=== PATIENT | female | born 1985 | race Two or more races ===

== ENCOUNTER 2019-08-23 09:23 | Emergency (ER) | payer SELFPAY ==
--- NOTE | 2019-08-23 09:51 | ER Document Report ---
ED Medical Screen (RME) - General Chief Complaint: Vaginal Bleeding Stated Complaint: VAGINAL BLEEDING/CRAMPING Time Seen by Provider: 08/23/19 09:47 Primary Care Provider: ESEQUIEL SHER [Primary Care Provider] - Follow up as needed Mode of Arrival: Ambulatory Information source: Patient Notes: Patient is an otherwise healthy 34-year-old female G4, P2 presenting to the emergency department with chief complaint of vaginal bleeding in the setting of early . Patient reports she is approximately 6 weeks , states that she was having some vaginal bleeding yesterday. She states the bleeding has resolved but now she is having a low abdominal cramping. I have greeted and performed a rapid initial assessment of this patient. A comprehensive ED assessment and evaluation of the patient, analysis of test results and completion of the medical decision making process will be conducted by additional ED providers. I have specifically instructed the patient or family members with the patient to immediately return to any nursing staff should anything change in the patient's condition or with their chief complaint. - Related Data Allergies/Adverse Reactions: No Known Drug Allergies Allergy (Verified 08/23/19 09:45) Physical Exam - Vital signs Vitals: Temp Pulse Resp BP Pulse Ox 98.6 F 85 16 114/68 99 08/23/19 09:32 08/23/19 09:32 08/23/19 09:32 08/23/19 09:32 08/23/19 09:32 Course - Vital Signs Vital signs: Temp Pulse Resp BP Pulse Ox 98.6 F 85 16 114/68 99 08/23/19 09:32 08/23/19 09:32 08/23/19 09:32 08/23/19 09:32 08/23/19 09:32 Doctor's Discharge - Discharge Referrals: ESEQUIEL SHER [Primary Care Provider] - Follow up as needed
[2019-08-23 10:38] LABS: ABSOLUTE EOSINOPHILS # (AUTO) 0.1 10^3/uL (0.0-0.6); ABSOLUTE LYMPHOCYTES (AUTO) 1.5 10^3/uL (0.5-4.7); ABSOLUTE MONOCYTES (AUTO) 0.5 10^3/uL (0.1-1.4); ABSOLUTE NEUT (AUTO) 5.3 10^3/uL (1.7-8.2); BASOPHILS % (AUTO) 0.3 % (0-2); EOSINOPHILS % (AUTO) 0.8 % (0-6); HEMATOCRIT 38.4 % (36.0-47.0); HEMOGLOBIN 13.3 g/dL (12.0-15.5); LYMPHOCYTES % (AUTO) 19.9 % (13-45); MEAN CORPUSCULAR HEMOGLOBIN 30.9 pg (27.0-33.4); MEAN CORPUSCULAR HGB CONC 34.7 g/dL (32.0-36.0); MEAN CORPUSCULAR VOLUME 89 fl (80-97); MONOCYTES % (AUTO) 7.3 % (3-13); PLATELET COUNT 291 10^3/uL (150-450); RED BLOOD COUNT 4.31 10^6/uL (3.72-5.28); SEGMENTED NEUTROPHILS % (AUTO) 71.7 % (42-78); TOTAL CELLS COUNTED % (AUTO) 100 %; WHITE BLOOD COUNT 7.4 10^3/uL (4.0-10.5)
[2019-08-23 10:49] LABS: APPEARANCE,URINE CLEAR; BILIRUBIN,URINE NEGATIVE (NEGATIVE); COLOR,URINE STRAW; GLUCOSE, URINE NEGATIVE (NEGATIVE); KETONES,URINE NEGATIVE (NEGATIVE); LEUKOCYTE ESTERASE,URINE NEGATIVE (NEGATIVE); NITRITE,URINE NEGATIVE (NEGATIVE); PROTEIN,URINE NEGATIVE (NEGATIVE); URINE SPECIFIC GRAVITY 1.004; UROBILINOGEN,URINE NEGATIVE mg/dL (<2.0)
--- NOTE | 2019-08-23 11:09 | RADIOLOGY REPORT (SQ) ---
EXAM DESCRIPTION: U/S OB TRANSVAGINAL W/O DOP COMPLETED DATE/TIME: 08/23/2019 10:43 am REASON FOR STUDY: 6 wks preg, vag bleed COMPARISON: None. TECHNIQUE: Transvaginal static and realtime grayscale images acquired of the pelvis. Additional mikel cted spectral and color Doppler images recorded. All images stored on PACs. bHCG: Pending. CLINICAL DATES: LMP 07/03/2019. RUPINDER based on LMP 04/08/2020. EGA based on LMP 7 weeks 2 days. LIMITATIONS: None. FINDINGS: FETUS: Single Living intrauterine . ULTRASOUND EGA: 7 weeks 2 days ULTRASOUND RUPINDER: 04/08/2020. CRL: 1.14 cm. FHR: 153 beats per minute. SURVEY: Too early to assess. AMNIOTIC FLUID: Too early to assess. PLACENTA: Too early to assess. SUBCHORIONIC BLEED: Yes. It measures 1.3 x 1.6 x 0.7 cm. UTERUS: The uterus measures 9.6 x 7 x 6.1 cm. CERVICAL LENGTH: 2.7 cm. Closed. RIGHT ADNEXA: The right ovary measures 2.5 x 2 x 1.8 cm. LEFT ADNEXA: The left ovary measures 3.5 x 2.8 x 2.5 cm. There is a cystic structure in the left ova ry that measures 2.5 x 2 x 1.5 cm that could represent a corpus luteum cyst FREE FLUID: None. OTHER: No other finding. IMPRESSION: LIVE INTRAUTERINE . EGA 7 weeks 2 days based on LMP with concordant biometric parameters. SUBCHORIONIC HEMORRHAGE THAT MEASURES 1.3 X 1.6 X 0.7 CM. Trimester of : First trimester - 0 to 13 weeks. TECHNICAL DOCUMENTATION: JOB ID: [id number] [employer]- All Rights Reserved rev-12/15 Reading location - IP/workstation name: [email or web address]
[2019-08-23 12:29] LABS: ALBUMIN 4.3 g/dL (3.5-5.0); ANION GAP 10 (5-19); ASPARTATE AMINO TRANSFERASE 28 U/L (14-36); BLOOD UREA NITROGEN 9 mg/dL (7-20); CALCIUM 9.4 mg/dL (8.4-10.2); CARBON DIOXIDE 25 mmol/L (22-30); CHLORIDE 102 mmol/L (98-107); GLUCOSE 71 mg/dL (75-110); POTASSIUM 4.3 mmol/L (3.6-5.0)
[2019-08-23 12:30] LABS: ALKALINE PHOSPHATASE 80 U/L (38-126); BILIRUBIN,TOTAL 0.3 mg/dL (0.2-1.3); TOTAL PROTEIN 7.5 g/dL (6.3-8.2)
--- NOTE | 2019-08-23 12:40 | ER Document Report ---
ED General - General Chief Complaint: Abdominal Cramping Stated Complaint: VAGINAL BLEEDING/CRAMPING Time Seen by Provider: 08/23/19 09:47 [facility]NO [facility] - 09/06/19 Mode of Arrival: Ambulatory Information source: Patient Notes: 34-year-old female approximately 6 weeks G4, P2 presents emergency department with complaints of vaginal bleeding yesterday none today. She also complains of some lower abdominal cramping. Denies fever vomiting diarrhea. Denies trauma. Denies pain with void. She reports she has been to the health department for visit, is taking vitamins. She has an appointm ent September 06 for repeat visit to the health department. TRAVEL OUTSIDE OF THE [place] IN LAST 30 DAYS: No - HPI Onset: Yesterday Onset/Duration: Sudden Quality of pain: Cramping Associated symptoms: None Exacerbated by: Denies Relieved by: Denies Similar symptoms previously: No Recently seen / treated by doctor: No - Related Data Allergies/Adverse Reactions: No Known Drug Allergies Allergy (Verified 08/23/19 09:45) Home Medications: [facility]. 1 tab daily Past Medical History - General Information source: Patient Last Menstrual Period: July 03, 2019 - Social History Smoking Status: Never Smoker Chew tobacco use (# tins/day): No Frequency of alcohol use: None Drug Abuse: None Lives with: Family Family History: Reviewed & Not Pertinent Patient has suicidal ideation: No Patient has homicidal ideation: No - Medical History Medical History: Negative Surgical Hx: Negative Review of Systems - Review of Systems Notes: Review HPI for review of systems., All other systems negative Physical Exam - Vital signs Vitals: Temp Pulse Resp BP Pulse Ox 98.6 F 85 16 114/68 99 08/23/19 09:32 08/23/19 09:32 08/23/19 09:32 08/23/19 09:32 08/23/19 09:32 - Notes Notes: PHYSICAL EXAMINATION: GENERAL: Well-appearing and in no acute distress smiles easily HEAD: Atraumatic, normocephalic. EYES: Pupils equal round and reactive to light, extraocular movements intact, sclera anicteric, conjunctiva are normal. ENT: nares patent, oropharynx clear without exudates. Moist mucous membranes. NECK: Normal range of motion, supple without lymphadenopathy LUNGS: CTAB and equal. No wheezes rales or rhonchi. HEART: Regular rate and rhythm without murmurs ABDOMEN: Soft, no tenderness. No guarding, no rebound EXTREMITIES: Normal range of motion NEUROLOGICAL: Cranial nerves grossly intact. PSYCH: Normal mood, normal affect. SKIN: Warm, Dry, normal turgor, no rashes or lesions noted Course - Re-evaluation Re-evalutation: 08/23/19 13:23 34-year-old female approximately 6 weeks G4, P2 presents with lower abdominal pain cramping today and some vaginal bleeding yesterday none today. Denies pain with void. Denies fever vomiting diarrhea. Patient looks good nontoxic looking. Patient has been evaluated by the health department. She has another appointment 37. Labs unremarkable patient is O+ no RhoGam needed. Ultrasound notes single IUP 7 weeks 2 days. Patient was instructed on all results. Patient speaks primarily Moldovan declined Yoana. She has a friend at the bedside who is interpreting. Harmony DE who speaks Moldovan discussed results and plan of care with patient Laboratory 08/23/19 08/23/19 08/23/19 10:10 10:10 10:10 WBC 7.4 RBC 4.31 Hgb 13.3 Hct 38.4 MCV 89 MCH 30.9 MCHC 34.7 RDW 13.0 Plt Count 291 Lymph % (Auto) 19.9 [place] % (Auto) 7.3 Eos % (Auto) 0.8 Baso % (Auto) 0.3 Absolute Neuts (auto) 5.3 Absolute Lymphs (auto) 1.5 Absolute Monos (auto) 0.5 Absolute Eos (auto) 0.1 Absolute Basos (auto) 0.0 Seg Neutrophils % 71.7 Sodium 137.4 Potassium 4.3 Chloride 102 Carbon Dioxide 25 Anion Gap 10 BUN 9 Creatinine 0.90 Est GFR ( Amer) > 60 Est GFR (MDRD) Non-Af > 60 Glucose 71 L Calcium 9.4 Total Bilirubin 0.3 Direct Bilirubin 0.0 Neonat Total Bilirubin Not Reportable Neonat Direct Bilirubin Not Reportable Neonat Indirect Bili Not Reportable AST 28 ALT 27 Alkaline Phosphatase 80 Total Protein 7.5 Albumin 4.3 Beta HCG, Quant 61322.00 H Total Beta HCG POSITIVE Urine Color Urine Appearance Urine pH Ur Specific [place] Urine Protein Urine Glucose (UA) Urine Ketones Urine Blood Urine Nitrite Urine Bilirubin Urine Urobilinogen Ur Leukocyte Esterase Urine Bacteria (Auto) Squamous Epi Cells Auto Urine Mucus (Auto) Urine Ascorbic Acid Blood Type O POSITIVE Rhogam Indicated RHOGAM NOT INDICATED 08/23/19 10:10 WBC RBC Hgb Hct MCV MCH MCHC RDW Plt Count Lymph % (Auto) [place] % (Auto) Eos % (Auto) Baso % (Auto) Absolute Neuts (auto) Absolute Lymphs (auto) Absolute Monos (auto) Absolute Eos (auto) Absolute Basos (auto) Seg Neutrophils % Sodium Potassium Chloride Carbon Dioxide Anion Gap BUN Creatinine Est GFR ( Amer) Est GFR (MDRD) Non-Af Glucose Calcium Total Bilirubin Direct Bilirubin Neonat Total Bilirubin Neonat Direct Bilirubin Neonat Indirect Bili AST ALT Alkaline Phosphatase Total Protein Albumin Beta HCG, Quant Total Beta HCG Urine Color STRAW Urine Appearance CLEAR Urine pH 7.0 Ur Specific [place] 1.004 Urine Protein NEGATIVE Urine Glucose (UA) NEGATIVE Urine Ketones NEGATIVE Urine Blood NEGATIVE Urine Nitrite NEGATIVE Urine Bilirubin NEGATIVE Urine Urobilinogen NEGATIVE Ur Leukocyte Esterase NEGATIVE Urine Bacteria (Auto) TRACE Squamous Epi Cells Auto <1 Urine Mucus (Auto) RARE Urine Ascorbic Acid NEGATIVE Blood Type Rhogam Indicated Obstetrics Ultrasound 08/23/19 09:50 IMPRESSION: LIVE INTRAUTERINE . EGA 7 weeks 2 days based on LMP with concordant biometric parameters. SUBCHORIONIC HEMORRHAGE THAT MEASURES 1.3 X 1.6 X 0.7 CM. Trimester of : First trimester - 0 to 13 weeks. - Vital Signs Vital signs: Temp Pulse Resp BP Pulse Ox 98.6 F 63 14 98/60 L 100 08/23/19 09:32 08/23/19 13:37 08/23/19 13:37 08/23/19 13:37 08/23/19 13:37 - Laboratory Result Diagrams: 08/23/19 10:10 08/23/19 10:10 Laboratory results interpreted by me: 08/23/19 10:10 Glucose 71 L Beta HCG, Quant 96718.00 H - Diagnostic Test Radiology reviewed: Reports reviewed Discharge - Discharge Clinical Impression: Vaginal bleeding, Abdominal cramping Qualifiers: Weeks of gestation: less than 8 weeks Qualified Code(s): Z3A.01 - Less than 8 weeks gestation of Condition: Stable Disposition: HOME, SELF-CARE Instructions: Bleeding During Early ([facility]), [facility], Pelvic Pain in ([facility]), ([facility]) Additional Instructions: *You have been evaluated for abdominal cramping, vaginal bleeding, *Your ultrasound showed a living intrauterine 7 weeks 2 days with heart rate of 153 bpm *Follow-up August 25 for a repeat beta-hCG. Your hCG today is 46,661. You may call [facility] at [phone] for your results 2 hours after test on Monday. *Take Tylenol as indicated *Follow up with the health department September 06 as scheduled *Return to ED for worsening condition, changes, needs, increased bleeding increased abdominal pain, concerns Forms: Follow-Up Laboratory Testing Referrals: [facility] [NO LOCAL MD] - 09/06/19
[2019-08-23 13:38] VITALS: BP 98/60
== END 2019-08-23 13:59 | disposition home or self-care (01) ==
LOC: ER 09:23
DX: O46.91 Antepartum hemorrhage, unspecified, first trimester (principal); O26.891 Other specified pregnancy related conditions, first trimester; R10.30 Lower abdominal pain, unspecified; Z3A.01 Less than 8 weeks gestation of pregnancy
CPT/HCPCS: 36415; 76817; 80053; 81001; 84702; 85025; 86900; 86901; 99284

== ENCOUNTER → 2019-08-25 | Outpatient (CLI) | payer SELFPAY | LOC: LAB 09:13 | PROVIDERS: ATTEND Nurse Practitioner Family | DX: O20.9 Hemorrhage in early pregnancy, unspecified (principal); O26.899 Other specified pregnancy related conditions, unspecified trimester; R10.9 Unspecified abdominal pain | CPT/HCPCS: 36415; 84702 ==

== ENCOUNTER 2020-03-21 10:12 | Inpatient (IN) | payer MEDICAID ==
[2020-03-21] MEDS ORDERED: CITRIC ACID/SODIUM CITRATE ORAL SOLN 15 ML UDCUP ONE (12:56)
[2020-03-21] MEDS ORDERED: CEFAZOLIN 2 GM/D5W RTU 2 GM/50 ML RTUPB IV ONE (12:57)
[2020-03-21] MEDS ORDERED: KETOROLAC TROMETHAMINE INJ/PF 30 MG/1 ML SDV ONE (13:08)
[2020-03-21] MEDS ORDERED: GLYCOPYRROLATE INJ 0.4 MG/2 ML VIAL ONE (13:08)
[2020-03-21] MEDS ORDERED: OXYTOCIN 10 UNIT/ML VIAL ONE (13:08)
[2020-03-21] MEDS ORDERED: FENTANYL CITRATE INJ/PF 100 MCG/2 ML AMPUL ONE ×2 (13:08→16:49)
[2020-03-21] MEDS ORDERED: EPHEDRINE SULFATE INJ 50 MG/1 ML AMPULE ONE (13:09)
[2020-03-21] MEDS ORDERED: ONDANSETRON HCL INJ/PF 4 MG/2 ML SDV ONE (13:09)
[2020-03-21] MEDS ORDERED: MIDAZOLAM 2 MG/2 ML INJ ONE (13:09)
[2020-03-21] MEDS ORDERED: ACETAMINOPHEN 1,000 MG/100 ML RTUPB IV ONE (13:09)
[2020-03-21] MEDS ORDERED: OXYTOCIN/0.9 % SODIUM CHLORIDE 30 UNIT/500 ML RTUINJ ONE (13:09)
--- NOTE | 2020-03-21 13:11 | Admission Physical ---
Datetime Report Generated by CPN: 03/21/2020 13:11 CURRENT ADMISSION Chief Complaint: Uterine Contractions; Vaginal Bleeding Indication for Induction: Not Applicable Admit Impression : Term, Intrauterine ; Active Labor; Ruptured Membranes; Primary Section Admit Impression- Other: called to pt's bs after SROM occurred due to cervical exam by nurse suspicious for cord prolapse vs lie. exam performed by myself illicited to be foot. No cord prolapse and FHTs reassuring for no cord prolapse. Admit Plan: Admit to Unit ALLERGIES Medication Allergies: No Medication Allergies: No Known Drug Allergies (08/23/2019) Latex: No Latex Allergies OBSTETRICAL HISTORY EDC: 04/08/2020 00:00 : 5 Para: 3 Term: 3 : 0 SAB: 0 IAB: 0 Ectopic: 0 Livin Cesareans: 0 VBACs: 0 Gestational Diabetes: No Rh Sensitization: No Incompetent Cervix: No LANDON: No Infertility: No ART Treatment: No Uterine Anomaly: No IUGR: No Hx Previous C/S: No Macrosomia: No Hx Loss/Stillborn: No PIH: No Hx : No Placenta Previa/Abruption: No Depression/PP Depression: No PTL/PROM: No Post Hemorrhage: No Obstetrical History Comments: G1: 1997 SAB G2: 2001, 40 wks, 6lbs 6 oz vag delv G3: 2008 40 wks, 6lbs 6 oz vag delv G4: 2013, 40 wks, 6lbs 6 oz vag delv G5: current (Annotations: Data stored by N on behalf of user) SEE RECORDS Alcohol: No Marijuana : No Cocaine: No Other Illicit Drugs: No Cigarettes: Never Smoker. 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 Surgery: No Heart Disease: No Hosp/Surgery: Yes Autoimmune Disorder: No Anesthetic Complications: No Kidney Disease: No Abnormal Pap Smear: No Neuro/Epilepsy: No Psychiatric Disorders: No Other Medical Diseases: No Hepatitis/Liver Disease: No Significant Family History: No Varicosities/Phlebitis: No Trauma/Violence : No Thyroid Dysfunction: No Medical History Comments: child birthx3 INFECTIOUS HISTORY Gonorrhea: No Genital Herpes: No Chlamydia: No Tuberculosis: No Syphilis: No Hepatitis: No HIV/AIDS Exposure: No Rash or Viral Illness: No HPV: No PHYSICAL EXAM Vital Signs: Reviewed; Within Normal Limits VAGINAL EXAM Dilatation: 6 Effacement: 75 Station: -2 MEMBRANES Pooling: Positive Membranes: Ruptured Amniotic Fluid Color: Bloody FETUS A EGA: 37.3 Monitoring: External US FHR- Baseline: 130 Variability: Moderate 6-25bpm Accelerations: 15X15 Decelerations: None FHR Category: Category I Estimated Weight (gm): 3200 Presentation: Breech Admit Comment: patient counseled via principal strategist for need for emergent c/section. Voices understanding through principal strategist. Declines BTL. PLANS FOR LABOR AND DELIVERY Labor and Delivery: None Pain Management: Natural Feeding Preference: Both Benefit of Breast Feed Discussed: Yes Circumcision: No INFORMED CONSENT Signature: with User ID: [email or web address]
[2020-03-21 13:56] LABS: APPEARANCE,URINE CLEAR; BILIRUBIN,URINE NEGATIVE (NEGATIVE); COLOR,URINE YELLOW; GLUCOSE, URINE NEGATIVE (NEGATIVE); KETONES,URINE NEGATIVE (NEGATIVE); LEUKOCYTE ESTERASE,URINE NEGATIVE (NEGATIVE); NITRITE,URINE NEGATIVE (NEGATIVE); PROTEIN,URINE NEGATIVE (NEGATIVE); URINE SPECIFIC GRAVITY 1.006; UROBILINOGEN,URINE NEGATIVE mg/dL (<2.0)
[2020-03-21 13:56] LABS: ABSOLUTE LYMPHOCYTES (AUTO) 2.3 10^3/uL (0.5-4.7); ABSOLUTE MONOCYTES (AUTO) 0.7 10^3/uL (0.1-1.4); ABSOLUTE NEUT (AUTO) 5.2 10^3/uL (1.7-8.2); BASOPHILS % (AUTO) 0.5 % (0-2); EOSINOPHILS % (AUTO) 0.3 % (0-6); HEMATOCRIT 38.6 % (36.0-47.0); HEMOGLOBIN 13.2 g/dL (12.0-15.5); LYMPHOCYTES % (AUTO) 27.8 % (13-45); MEAN CORPUSCULAR HEMOGLOBIN 32.3 pg (27.0-33.4); MEAN CORPUSCULAR HGB CONC 34.1 g/dL (32.0-36.0); MEAN CORPUSCULAR VOLUME 95 fl (80-97); PLATELET COUNT 166 10^3/uL (150-450); RED BLOOD COUNT 4.07 10^6/uL (3.72-5.28); RED CELL DISTRIBUTION WIDTH 14.7 % (11.5-14.0); SEGMENTED NEUTROPHILS % (AUTO) 63.4 % (42-78); TOTAL CELLS COUNTED % (AUTO) 100 %; WHITE BLOOD COUNT 8.2 10^3/uL (4.0-10.5)
[2020-03-21 14:17] LABS: URINE AMPHETAMINES SCREEN NEGATIVE; URINE BARBITURATES SCREEN NEGATIVE; URINE BENZODIAZEPINES SCREEN NEGATIVE; URINE COCAINE SCREEN NEGATIVE; URINE MARIJUANA (THC) SCREEN NEGATIVE; URINE METHADONE SCREEN NEGATIVE; URINE PHENCYCLIDINE SCREEN NEGATIVE
[2020-03-21] MEDS ORDERED: OXYCODONE-ACETAMINOPHEN 5-325 MG TABLET PO PRN (15:08)
[2020-03-21] MEDS ORDERED: SIMETHICONE 80 MG TAB.CHEW PO PRN (15:08)
[2020-03-21] MEDS ORDERED: ACETAMINOPHEN 1,000 MG/100 ML RTUPB IV PRN (15:08)
[2020-03-21] MEDS ORDERED: RINGERS SOLUTION,LACTATED 1,000 ML IV PRN (15:08)
[2020-03-21] MEDS ORDERED: OXYTOCIN/0.9 % SODIUM CHLORIDE 30 UNIT/500 ML RTUINJ IV PRN (15:08)
[2020-03-21] MEDS ORDERED: PROMETHAZINE HCL INJ 25 MG/1 ML VIAL IV PRN (15:08)
[2020-03-21] MEDS ORDERED: MEASLES,MUMPS&RUBELLA VACC/PF 0.5 ML VIAL SUBCUT PRN (15:08)
[2020-03-21] MEDS ORDERED: ACETAMINOPHEN 325 MG TABLET PO PRN (15:08)
[2020-03-21] MEDS ORDERED: DIPH/PERTUSS(ACELL)/TETANUS VAC/PF 0.5 ML SYR (>=10YO) IM PRN (15:08)
--- NOTE | 2020-03-21 15:16 | Operative Report ---
Operative Report DATE OF SURGERY: 03/21/20 PREOPERATIVE DIAGNOSIS: IUP at 37 weeks and 3 days, spontaneous rupture of memb dewayne, footling breech presentation POSTOPERATIVE DIAGNOSIS: Same OPERATION: Primary with active uterine segment involvement SURGEON: LACI ASKEW ANESTHESIA: Spinal COMPLICATIONS: None ESTIMATED BLOOD LOSS: 958 cc INTRAOPERATIVE FINDINGS: Male in footling breech presentation, uterus with poorly developed lower uterine segment, very likely to have active uterine segment involvement in hysterotomy PROCEDURE: PROCEDURE IN DETAIL: The patient was taken to the operating room, prepared and draped in a normal sterile fashion in a supine position with a leftward tilt. A transverse skin incision was made with a scalpel and carried through to the underlying layer of fascia with the same scalpel. The fascia was excised in the midline and extended laterally with Wil. The fascia was then dissected from the rectus muscle sharply with Wil and the rectus muscle was divided and the peritoneal cavity was entered sharply with the same Metzenbaum. With good visualization of the bladder and the uterus the bladder blade was inserted. The hysterotomy was nicked with evidence of active segment involvement with a scalpel and extended laterally with surgeon finger fraction. The was then delivered atraumatically. The nose and mouth were suctioned with a suction bulb, the cord was clamped and cut and handed off to awaiting pediatricians. Cord blood was collected. The placenta was removed manually. The uterus was exteriorized and cleared of clots and debris. The hysterotomy was closed with 0 Monocryl in a running, locked fashion. A second layer of the same suture was used to imbricate to ensure hemostasis. The uterus was returned to the abdomen and peritoneal cavity was cleared of clots and debris. The rectus muscle and peritoneum were repaired with mattress stitch of 2-0 Chromic. The fascia was closed with 0-Vicryl. The subcutaneous layer was closed with plain catgut and the skin was closed with 4-0 Vicryl. The patient tolerated the procedure well. Sponge, lap, and needle counts correct x2 and the patient was taken to recovery in stable condition.
[2020-03-21] MEDS ORDERED: MORPHINE SULFATE 10 MG/ML INJ ONE (15:55)
[2020-03-21] MEDS: MORPHINE SULFATE 10 MG/ML INJ IV PRN ×2 (16:00→20:12)
[2020-03-21] MEDS: DOCUSATE SODIUM 100 MG CAPSULE PO SCH (17:48)
[2020-03-21] MEDS: OXYCODONE-ACETAMINOPHEN 5-325 MG TABLET PO PRN (18:27)
[2020-03-21] MEDS: KETOROLAC TROMETHAMINE INJ/PF 30 MG/1 ML SDV IV SCH (21:49)
[2020-03-22] MEDS: OXYCODONE-ACETAMINOPHEN 5-325 MG TABLET PO PRN ×2 (01:46→17:10)
[2020-03-22] MEDS: MORPHINE SULFATE 10 MG/ML INJ IV PRN (04:21)
[2020-03-22] MEDS: KETOROLAC TROMETHAMINE INJ/PF 30 MG/1 ML SDV IV SCH ×2 (05:22→14:25)
[2020-03-22 06:44] LABS: HEMATOCRIT 30.9 % (36.0-47.0); MEAN CORPUSCULAR HEMOGLOBIN 32.2 pg (27.0-33.4); MEAN CORPUSCULAR HGB CONC 34.5 g/dL (32.0-36.0); MEAN CORPUSCULAR VOLUME 93 fl (80-97); PLATELET COUNT 147 10^3/uL (150-450); RED BLOOD COUNT 3.31 10^6/uL (3.72-5.28); RED CELL DISTRIBUTION WIDTH 14.9 % (11.5-14.0); WHITE BLOOD COUNT 9.6 10^3/uL (4.0-10.5)
[2020-03-22 06:53] LABS: HEMOGLOBIN 10.7 g/dL (12.0-15.5)
--- NOTE | 2020-03-22 09:39 | PDOC PROGRESS REPORT ---
Subjective-OB Progress Note for:: 03/22/20 Subjective: resting in bed, hsb at BS, he states she is good, pain under control, pt smiling and agrees, bottle feeding, + gas Physical Exam (OB) Vital Signs: Temp Pulse Resp BP Pulse Ox 98.3 F 79 20 98/63 L 98 03/22/20 08:46 03/22/20 08:46 03/22/20 08:46 03/22/20 08:46 03/22/20 08:46 Intake & Output 03/21/20 03/22/20 03/23/20 06:59 06:59 06:59 Intake Total 600 Output Total 2100 250 Balance -1500 -250 Weight 76.4 kg - PIH/Pre-Eclampsia DTR's: 2 + Clonus: Negative Headache: Absent Epigastric Pain: No Visual Changes: No - Dressing Removed: No Incision: Dressing, Well Approximated Closure Type: Opsite - Bilateral Tubal Ligation Dressing Removed: No - Maternal Morbidity 59. Maternal Morbidity (serious complications experinced by the mother associated with labor and delivery: None of the above - Lochia Lochia Amount: Scant < 10 ml Lochia Color: Rubra/Red - Abdomen Description: Tender, Soft Hernia Present: No Fundal Description: Firm, Midline Fundal Height: u/u - u/2 Objective-Diagnostic Laboratory: 03/22/20 06:25 03/21/20 03/21/20 03/21/20 10:36 13:32 13:32 WBC 8.2 RBC 4.07 Hgb 13.2 Hct 38.6 MCV 95 MCH 32.3 MCHC 34.1 RDW 14.7 H Plt Count 166 Seg Neutrophils % 63.4 Urine Color YELLOW Urine Appearance CLEAR Urine pH 7.0 Ur Specific [place] 1.006 Urine Protein NEGATIVE Urine Glucose (UA) NEGATIVE Urine Ketones NEGATIVE Urine Blood LARGE H Urine Nitrite NEGATIVE Ur Leukocyte Esterase NEGATIVE Blood Type O POSITIVE Antibody Screen NEGATIVE 03/22/20 06:25 WBC 9.6 RBC 3.31 L Hgb 10.7 L D Hct 30.9 L MCV 93 MCH 32.2 MCHC 34.5 RDW 14.9 H Plt Count 147 L Seg Neutrophils % Urine Color Urine Appearance Urine pH Ur Specific [place] Urine Protein Urine Glucose (UA) Urine Ketones Urine Blood Urine Nitrite Ur Leukocyte Esterase Blood Type Antibody Screen Assessment and Plan(PN) - Assessment and Plan (1) S/P primary low transverse Is this a current diagnosis for this admission?: Yes (2) delivery indicated due to breech presentation Is this a current diagnosis for this admission?: Yes - Time Spent with Patient Time with patient: Less than 15 minutes Medications reviewed and adjusted accordingly: Yes - Disposition Anticipated Discharge Disposition: Home, Self Care Anticipated Discharge Timeframe: within 48 hours
[2020-03-22] MEDS: DOCUSATE SODIUM 100 MG CAPSULE PO SCH ×2 (10:19→17:10)
[2020-03-22] MEDS: PRENATAL VITAMIN W DHA CAPSULE PO SCH (10:19)
[2020-03-22] MEDS: IBUPROFEN 800 MG TABLET PO SCH (20:25)
[2020-03-23] MEDS: IBUPROFEN 800 MG TABLET PO SCH ×3 (00:31→11:01)
[2020-03-23] MEDS: DOCUSATE SODIUM 100 MG CAPSULE PO SCH (09:26)
[2020-03-23] MEDS: PRENATAL VITAMIN W DHA CAPSULE PO SCH (09:26)
--- NOTE | 2020-03-23 11:13 | PDOC DISCHARGE SUMMARY ---
Impression - Admit/DC Date/PCP Admission Date/Primary Care Provider: 03/21/20 13:00 HARDY MEHTA MD Discharge Date: 03/23/20 - POD #2, UOB, voiding, doing well, no complaints, O+ , Rubella Immune, breast and bottlefeeding - Discharge Diagnosis (1) Normal course Is this a current diagnosis for this admission?: Yes (2) delivery indicated due to breech presentation Is this a current diagnosis for this admission?: Yes (3) S/P primary low transverse Is this a current diagnosis for this admission?: Yes - Additional Information Resuscitation Status: Full Code Discharge Diet: Regular Discharge Activity: Activity As Tolerated, No Driving, No Lifting Over 10 Pounds, No Lifting/Push/Pulling, No tub bath [facility] [Provider Group] (Please call and schedule a 1 week f/u for an incision check at [facility]. ) Prescriptions: Ibuprofen [Motrin 800 mg Tablet] 800 mg PO Q6 #60 tablet Oxycodone HCl/Acetaminophen [Percocet 5-325 mg Tablet] 1 tab PO Q4HP PRN #30 tablet PRN Reason: Pain Scale Of 4 Home Medications: Vit/Iron Fumarate/FA [ Plus Tablet] 1 each PO DAILY 05/23/13 Ibuprofen [Motrin 800 mg Tablet] 800 mg PO Q6 #60 tablet 03/23/20 Oxycodone HCl/Acetaminophen [Percocet 5-325 mg Tablet] 1 tab PO Q4HP PRN #30 tablet 03/23/20 HPI Reason(s) for Admission: Ceasarean Section-Primary Admission Note: breech presentation Procedures: Ultrasound Intrapartum Procedure(s): : Low Cervical, Transverse Hospital Course 59. Maternal Morbidity (serious complications experinced by the mother associated with labor and delivery: None of the above Results Laboratory Results: WBC 9.6 10^3/uL (4.0-10.5) 03/22/20 06:25 RBC 3.31 10^6/uL (3.72-5.28) L 03/22/20 06:25 Hgb 10.7 g/dL (12.0-15.5) L D 03/22/20 06:25 Hct 30.9 % (36.0-47.0) L 03/22/20 06:25 MCV 93 fl (80-97) 03/22/20 06:25 MCH 32.2 pg (27.0-33.4) 03/22/20 06:25 MCHC 34.5 g/dL (32.0-36.0) 03/22/20 06:25 RDW 14.9 % (11.5-14.0) H 03/22/20 06:25 Plt Count 147 10^3/uL (150-450) L 03/22/20 06:25 Lymph % (Auto) 27.8 % (13-45) 03/21/20 13:32 [place] % (Auto) 8.0 % (3-13) 03/21/20 13:32 Eos % (Auto) 0.3 % (0-6) 03/21/20 13:32 Baso % (Auto) 0.5 % (0-2) 03/21/20 13:32 Absolute Neuts (auto) 5.2 10^3/uL (1.7-8.2) 03/21/20 13:32 Absolute Lymphs (auto) 2.3 10^3/uL (0.5-4.7) 03/21/20 13:32 Absolute Monos (auto) 0.7 10^3/uL (0.1-1.4) 03/21/20 13:32 Absolute Eos (auto) 0.0 10^3/uL (0.0-0.6) 03/21/20 13:32 Absolute Basos (auto) 0.0 10^3/uL (0.0-0.2) 03/21/20 13:32 Seg Neutrophils % 63.4 % (42-78) 03/21/20 13:32 Urine Color YELLOW 03/21/20 10:36 Urine Appearance CLEAR 03/21/20 10:36 Urine pH 7.0 (5.0-9.0) 03/21/20 10:36 Ur Specific [place] 1.006 03/21/20 10:36 Urine Protein NEGATIVE mg/dL (NEGATIVE) 03/21/20 10:36 Urine Glucose (UA) NEGATIVE mg/dL (NEGATIVE) 03/21/20 10:36 Urine Ketones NEGATIVE mg/dL (NEGATIVE) 03/21/20 10:36 Urine Blood LARGE (NEGATIVE) H 03/21/20 10:36 Urine Nitrite NEGATIVE (NEGATIVE) 03/21/20 10:36 Urine Bilirubin NEGATIVE (NEGATIVE) 03/21/20 10:36 Urine Urobilinogen NEGATIVE mg/dL (<2.0) 03/21/20 10:36 Ur Leukocyte Esterase NEGATIVE (NEGATIVE) 03/21/20 10:36 Urine Ascorbic Acid NEGATIVE (NEGATIVE) 03/21/20 10:36 Urine Opiates Screen NEGATIVE 03/21/20 10:36 Urine Methadone Screen NEGATIVE 03/21/20 10:36 Ur Barbiturates Screen NEGATIVE 03/21/20 10:36 Ur Phencyclidine Scrn NEGATIVE 03/21/20 10:36 Ur Amphetamines Screen NEGATIVE 03/21/20 10:36 U Benzodiazepines Scrn NEGATIVE 03/21/20 10:36 Urine Cocaine Screen NEGATIVE 03/21/20 10:36 U Marijuana (THC) Screen NEGATIVE 03/21/20 10:36 RPR NONREACTIVE (NONREACTIVE) 03/21/20 13:32 Blood Type O POSITIVE 03/21/20 13:32 Antibody Screen NEGATIVE 03/21/20 13:32 Plan Plan of Treatment: d/c home, f/up with [facility] in 1 week for incision check Time Spent: Less than 30 Minutes
[2020-03-23 11:34] VITALS: BP 99/59
[2020-03-23] MEDS: OXYCODONE-ACETAMINOPHEN 5-325 MG TABLET PO PRN (13:02)
--- NOTE | 2020-03-24 13:45 | Delivery Summary ---
Del Sum A-C Datetime Report Generated by CPN: 03/24/2020 13:45 DELIVERY PERSONNEL DELIVERY PERSONNEL: [id number] Delivery Doctor:: Yanira Elkins MD Anesthesiologist:: Dr. Martinez LANGUAGE THERAPIST:: Cedric Normile, LANGUAGE THERAPIST LANGUAGE THERAPIST:: Cedric Normile, LANGUAGE THERAPIST Labor and Delivery Nurse:: Mary Mcginnis RN Frame Opener:: Mary Mcginnis RN Neonatal Nurse Practitioner:: JENNA Gutierrez Nursery Nurse:: Rocio Zhu RN Server Support Technician/JEWELRY MECHANIC: Montse Ge CST Server Support Technician/JEWELRY MECHANIC: Jason Butler CST Server Support Technician/JEWELRY MECHANIC: Jason Butler CST Server Support Technician/JEWELRY MECHANIC: Montse Ge, PROPOSAL DIRECTOR MATERNAL INFORMATION Delivery Anesthesia: Spinal Medications After Delivery: Pitocin 30 Units in 500ml NS/D5W Delivery QBL: 968 Maternal Complications: None LABOR SUMMARY EDC: 04/08/2020 00:00 No. Babies in Womb: 1 Attempted: No Labor Anesthesia: None LABOR INFORMATION Reason for Induction: Not Applicable Onset of Labor: 03/21/2020 12:39 Oxytocin: N/A Group B Beta Strep: negative Antibiotics # of Doses: 0 Steroids Given: None Reason Steroids Not Administered: Not Applicable MEMBRANES Membranes Rupture Method: Spontaneous Rupture of Membranes: 03/21/2020 12:39 Length of Rupture (hr): 1.72 Amniotic Fluid Color: Clear Amniotic Fluid Amount: Copious Amniotic Fluid Odor: Normal STAGES OF LABOR Stage 3 hr: 0 Stage 3 min: 1 Total Time in Labor hr: 1 Total Time in Labor min: 44 VAGINAL DELIVERY Episiotomy: None Laceration #1: None Laceration Repair: Not Applicable Sponge Count Correct: N/A Sharps Count Correct: N/A CSECTION DELIVERY Primary Indication: Breech Presentation Secondary Indication: N/A CSection Urgency: Non-Scheduled CSection Incidence: Primary Labor: Labor Elective: Nonelective CSection Incision: Lower Uterine Transverse BABY A INFORMATION Infant Delivery Date/Time: 03/21/2020 14:22 Method of Delivery: Nurse Controlled Delivery: No Born in Route : No : N/A Forceps: N/A Vacuum Extraction: N/A Shoulder Dystocia : No PRESENTATION/POSITION BABY A Presentation: Other Cephalic Presentation: N/A Breech Presentation: Single Footling PLACENTA INFORMATION BABY A Placenta Delivery Time : 03/21/2020 14:23 Placenta Method of Delivery: Spontaneous Placenta Status: Delivered SCORES BABY A Heart Rate 1 min: >100 bpm Resp Effort 1 min: Good Cry Reflex Irritability 1 min: Cough or Sneeze or Pulls Away Muscle Tone 1 min: Active Motion Color 1 min: Body [place], Extremities Blue Resuscitation Effort 1 min: Tactile Stimulation SCORE 1 MIN: 9 Heart Rate 5 min: >100 bpm Resp Effort 5 min: Good Cry Reflex Irritability 5 min: Cough or Sneeze or Pulls Away Muscle Tone 5 min: Active Motion Color 5 min: Body [place], Extremities Blue Resuscitation Effort 5 min: N/A SCORE 5 MIN: 9 INFORMATION BABY A Gestational Age at Delivery: 37.3 Gestational Status: Early Term- 37- 38.6 Weeks Outcome : Liveborn Condition : Stable Infant Sex: Male IDENTIFICATION BABY A Verification Date/Time: 03/21/2020 14:25 ID Band Number: [id number] Mother's Name Verified: Yes Infant RN Verifying Infant: Rylee Mcginnis RN, JJoe Zhu RN WEIGHT/LENGTH BABY A Infant Birthweight (gm): 3015 Weight (lb): 6 Infant Weight (oz): 10 Infant Length (in): 19.75 Length (cm): 50.17 CORD INFORMATION BABY A No. Cord Vessels: 3 Nuchal Cord : Around Neck x1, Loose Cord Blood Taken: Yes-For Eval (Mom's Blood Type - or O+) Infant Suction: None ASSESSMENT BABY A Infant Complications: None Physical Findings at Delivery: Within Normal Limits Respirations: Appears Normal Allergist/Immunologist/ALS Called : Yes Infant Care By: Azar Zhu RN Transferred To: [facility] BABY B INFORMATION : N/A
== END 2020-03-23 15:15 | disposition home or self-care (01) | DRG 788 ==
LOC: LC 10:12 → LR 13:00 → 2S 17:10
PROVIDERS: ADMIT Obstetrics & Gynecology; ATTEND Obstetrics & Gynecology
PROC: 10D00Z1 Extraction of Products of Conception, Low, Open Approach (ICD-10-PCS; principal; 2020-03-21)
DX: O32.8XX0 Maternal care for other malpresentation of fetus, not applicable or unspecified (principal); O69.81X0 Labor and delivery complicated by cord around neck, without compression, not applicable or unspecified; Z11.59 Encounter for screening for other viral diseases; Z3A.37 37 weeks gestation of pregnancy; Z37.0 Single live birth
CPT/HCPCS: 1961; 36415; 80307; 81005; 85025; 85027; 86592; 86850; 86900; 86901; 94760; 94799; C1758; J0131; J0690; J1885; J2250; J2270; J2405; J2590; J3010; J3490; J7120